=== PATIENT | female | born 1995 | race Caucasian/White ===

== ENCOUNTER 2018-09-01 17:10 | Emergency (ER) | payer MEDICAID ==
[2018-09-01 17:24] VITALS: BP 118/74; PULSE 79; RESP 21; TEMP 97.9; O2SAT 100
--- NOTE | 2018-09-01 18:45 | C.PDOC ---
History Of Present Illness 23 y/o female presents to ED complaining of nasal congestion and difficulty breathing through her nose. Patient states that symptoms have worsened today and has SOB, which prompted her to the ER. Patient has already been seen by her PMD who gave her steroid nasal spray and inhaler. Patient was also seen by a gift basket packer who did EKG that was normal. She has a scheduled bloodwork to be done tomorrow. Denies fever, palpitations, chest pain but admits to nonproductive cough. Time Seen by Provider: 09/01/18 17:22 Chief Complaint (Nursing): Anxiety History Per: Patient History/Exam Limitations: no limitations Onset/Duration Of Symptoms: Days Current Symptoms Are (Timing): Still Present Past Medical History Reviewed: Historical Data, Nursing Documentation, Vital Signs Vital Signs: Last Vital Signs Temp 97.9 F 09/01/18 17:15 Pulse 79 09/01/18 17:15 Resp 21 09/01/18 17:15 BP 118/74 09/01/18 17:15 Pulse Ox 100 09/01/18 17:15 - Medical History PMH: Anxiety Family History: States: No Known Family Hx - Social History Hx Alcohol Use: No Hx Substance Use: No - Immunization History Hx Tetanus Toxoid Vaccination: No Hx Influenza Vaccination: No Hx Pneumococcal Vaccination: No Review Of Systems Constitutional: Negative for: Fever ENT: Positive for: Nose Congestion Cardiovascular: Negative for: Chest Pain, Palpitations Respiratory: Positive for: Cough (nonproductive), Shortness of Breath Physical Exam - Physical Exam Appears: Non-toxic, No Acute Distress Skin: Warm, Dry Head: Atraumatic, Normacephalic Eye(s): bilateral: Normal Inspection, PERRL, EOMI Nose: Other (rhinorrhea) Oral Mucosa: Moist Neck: Supple Chest: Symmetrical Cardiovascular: Rhythm Regular, No Murmur Respiratory: Normal Breath Sounds, No Rales, No Rhonchi, No Wheezing Gastrointestinal/Abdominal: Soft, No Tenderness Extremity: Bilateral: Atraumatic, Normal Color And Temperature, Normal ROM Neurological/Psych: Oriented x3, Normal Speech ED Course And Treatment O2 Sat by Pulse Oximetry: 100 (RA) Pulse Ox Interpretation: Normal Progress Note: Gave patient sudafed and had chest x-ray ordered that was normal. On re-assessment, patient is resting comfortably and feeling better. Patient will be discharged home. Disposition Counseled Patient/Family Regarding: Diagnosis, Need For Followup, Rx Given - Disposition Referrals: Tiarra Bush MD [Staff Provider] - Disposition: HOME/ ROUTINE Disposition Time: 18:40 Condition: STABLE Additional Instructions: FOLLOW UP WITH YOUR DOCTOR IN 1-2 DAYS USE MEDICATION NEEDED RETURN TO ER IF SYMPTOMS WORSEN Prescriptions: Pseudoephedrine HCl [Sudafed] 30 mg PO BID PRN #15 tablet PRN Reason: Nasal Congestion Forms: [facility] (Tuvaluan), General Discharge Instructions Print Language: KINYARWANDA - Clinical Impression Clinical Impression: Nasal congestion - Scribe Statement The provider has reviewed the documentation as recorded by the [place] Alanis Provider Attestation: All medical record entries made by the Wilibregis were at my direction and personally dictated by me. I have reviewed the chart and agree that the record accurately reflects my personal performance of the history, physical exam, medical decision making, and the department course for this patient. I have also personally directed, reviewed, and agree with the discharge instructions and disposition.
--- NOTE | 2018-09-02 10:14 | RAD ---
Date of service: 09/01/2018 HISTORY: cough, sob COMPARISON: No prior. TECHNIQUE: Chest PA and lateral FINDINGS: LUNGS: No active pulmonary disease. PLEURA: No significant pleural effusion identified. No pneumothorax apparent. CARDIOVASCULAR: No aortic atherosclerotic calcification present. Normal cardiac size. No pulmonary vascular congestion. OSSEOUS STRUCTURES: No significant abnormalities. VISUALIZED UPPER ABDOMEN: Normal. OTHER FINDINGS: None. IMPRESSION: No active disease.
== END 2018-09-01 18:50 | disposition home or self-care (01) ==
LOC: C.ER 17:10
DX: R09.81 Nasal congestion (principal)